=== PATIENT | female | born 2000 | race Caucasian/White ===

== ENCOUNTER 2021-01-29 11:02 | Emergency (ER) | payer OTHER ==
[2021-01-29 11:24] VITALS: BMI 26.9
[2021-01-29 13:34] LABS: BASO % 0.7 % (0-2.0); EOS % 1.6 % (0-4.5); HEMATOCRIT 39.9 % (32.4-45.2); HEMOGLOBIN 13.3 GM/dL (10.7-15.3); LYMPH % 37.8 % (8-40); MCH 29.8 pg (25.7-33.7); MCHC 33.5 g/dl (32.0-36.0); MEAN PLT VOLUME 8.2 fl (7.5-11.1); MONO % 8.9 % (3.8-10.2); PLATELET COUNT 281 K/MM3 (134-434); RBC 4.48 M/mm3 (3.60-5.2); RDW 12.7 % (11.6-15.6); WHITE BLOOD COUNT 8.5 K/mm3 (4.0-10.0)
[2021-01-29 13:39] LABS: EPI CELLS >36 /uL (0-25.1); HYALINE CASTS 2 /uL (0-3.1); PH,URINE 8.5 (5.0-8.0); URINE APPEARANCE CLOUDY; URINE BACTERIA 6636 /uL (0-1359); URINE BILIRUBIN NEGATIVE (NEGATIVE); URINE COLOR YELLOW; URINE GLUCOSE (UA) NEGATIVE (NEGATIVE); URINE KETONE NEGATIVE (NEGATIVE); URINE LEUK ESTERASE 3+ (NEGATIVE); URINE NITRITE NEGATIVE (NEGATIVE); URINE PROTEIN NEGATIVE (NEGATIVE); URINE RBC 22 /uL (0-23.9); URINE UROBILINOGEN 0.2 mg/dL (0.2-1.0); URINE WBC 521 /uL (0-25.8)
[2021-01-29 13:46] LABS: HCG,QUALITATIVE URINE Negative
[2021-01-29 13:53] LABS: CALCIUM 9.6 mg/dL (8.5-10.1)
[2021-01-29 13:54] LABS: ALBUMIN 4.3 g/dl (3.4-5.0); BLOOD UREA NITROGEN 8.2 mg/dL (7-18)
[2021-01-29 13:57] LABS: CREATININE 0.6 mg/dL (0.55-1.3)
[2021-01-29 13:58] LABS: BILIRUBIN,TOTAL 0.3 mg/dL (0.2-1)
[2021-01-29 13:59] LABS: TOT PROT 7.8 g/dl (6.4-8.2)
[2021-01-29 14:47] VITALS: BP 118/76; PULSE 80; TEMP 98.3
== END 2021-01-29 14:47 | disposition home or self-care (01) ==
LOC: JER 11:02
DX: N30.00 Acute cystitis without hematuria (principal)
CPT/HCPCS: 36415; 76856-TC; 80053; 81003; 84703; 85025; 87086; 99285-25